=== PATIENT | female | born 1980 | race Asian ===

== ENCOUNTER → 2019-04-09 | Emergency (ER) | payer OTHER ==
[~2019-04-09] VITALS: Ht 175.3 cm; Wt 63.5 kg
--- NOTE | 2019-04-09 15:30 | NUR ---
patient came in to the ER c/o cough x 1 month, on room air, breathing evenly and unlabored. kept comfortable, will continue to monitor accordingly.
[2019-04-09 16:19] VITALS: BP 115/67
--- NOTE | 2019-04-09 16:21 | NUR ---
Patient discharged to home in stable condition. Written and verbal after care instructions given. Patient verbalizes understanding of instruction. patient unable to depart due to meditech problem.
== END | disposition home or self-care (01) ==
LOC: ER 14:48
DX: J20.9 Acute bronchitis, unspecified (principal); R09.81 Nasal congestion; Z90.89 Acquired absence of other organs
CPT/HCPCS: 71046

== ENCOUNTER 2021-07-31 16:50 | Emergency (ER) | payer BC, OTHER ==
[~2021-07-31] VITALS: Ht 172.7 cm; Wt 66.2 kg
--- NOTE | 2021-07-31 17:00 | NUR ---
PER PATIENT NO POSSIBILITY OF , HAVE PERIOD RIGHT NOW
--- NOTE | 2021-07-31 17:10 | NUR ---
August swanson in ED - 07/31/21 at 1730 by ZENY MD AT [facility]
--- NOTE | 2021-07-31 17:11 | NUR ---
BIBSELF c/o jaw pain, chin,and bilateral knee abrasion s/p tripped and fall 11/05 ps. AMBULATORY, [id number]. PLACED ON BED
--- NOTE | 2021-07-31 17:12 | NUR ---
AT BED SIDE
--- NOTE | 2021-07-31 17:20 | NUR ---
X-RAY TECH. AT BED SIDE
[2021-07-31] MEDS ORDERED: KETOROLAC TROMETHAMINE INJ 60 MG/2 ML VIAL IM ONE (17:30)
[2021-07-31] MEDS ORDERED: KETOROLAC TROMETHAMINE INJ 30 MG/ML VIAL ONE (17:34)
[2021-07-31] MEDS ORDERED: NAPR-1009 PO (18:38)
[2021-07-31] MEDS ORDERED: MUPI22OI2 TP (18:40)
[2021-07-31] MEDS ORDERED: CEPH500C2 PO (18:40)
--- NOTE | 2021-07-31 18:45 | NUR ---
Patient discharged to home in stable condition. Written and verbal after care instructions given. Patient verbalizes understanding of instruction.
[2021-07-31 18:52] VITALS: BP 115/80
== END 2021-07-31 18:45 | disposition home or self-care (01) ==
LOC: ER 16:55
DX: S03.42XA Sprain of jaw, left side, initial encounter (principal); S80.02XA Contusion of left knee, initial encounter; S00.81XA Abrasion of other part of head, initial encounter; S80.211A Abrasion, right knee, initial encounter; Z90.89 Acquired absence of other organs; W01.0XXA Fall on same level from slipping, tripping and stumbling without subsequent striking against object, initial encounter; Y93.89 Activity, other specified; Y92.89 Other specified places as the place of occurrence of the external cause; Y99.8 Other external cause status
CPT/HCPCS: 73564; 96372; 99283; J1885